=== PATIENT | female | born 1950 | race Caucasian/White ===

== ENCOUNTER → 2025-05-28 | Outpatient (CLI) | payer MEDICARE, OTHER ==
[~2025-05-28] MED LIST: ACET-683 PO; CALC500C16 PO; D-MA500C2 PO; GNP250TA9 PO; IBUP-1022 PO; MELO7.5T35 PO; OXYC-517 PO; PROBCAP14 PO
== END ==
LOC: M SOG 06:50
PROVIDERS: ATTEND Physician Assistant
DX: M25.621 Stiffness of right elbow, not elsewhere classified (principal); Z87.81 Personal history of (healed) traumatic fracture; Z96.698 Presence of other orthopedic joint implants; Z96.641 Presence of right artificial hip joint

== ENCOUNTER 2025-06-05 09:32 | Day surgery (SDC) | payer MEDICARE, OTHER ==
[~2025-06-05] VITALS: Ht 167.6 cm; Wt 58.1 kg
[~2025-06-05 09:32] MED LIST changes: -IBUP-1022 PO; +IBUP600T42 PO
[2025-06-05] MEDS ORDERED: MIDAZOLAM INJ 2 MG/2 ML VIAL As Ordered ONE (09:43)
[2025-06-05] MEDS ORDERED: LIDOCAINE 2% 100 MG/5 ML SDV (FOR ANES.) As Ordered ONE (09:44)
[2025-06-05] MEDS ORDERED: dexAMETHasone 4 MG/ML 1 ML VIAL As Ordered ONE (09:45)
[2025-06-05] MEDS ORDERED: LR 1,000 ML IV SCH (09:55)
[2025-06-05] MEDS ORDERED: ACETAMINOPHEN 1000MG/100ML IV BAG As Ordered ONE (11:16)
[2025-06-05] MEDS ORDERED: ceFAZolin SOD 2 GM IV ONCE IV ONE (12:00)
[2025-06-05] MEDS ORDERED: ONDANSETRON 4MG 2ML VIAL As Ordered ONE (12:01)
[2025-06-05] MEDS ORDERED: GLYCOPYRROLATE INJ 0.2 MG/ML 2 ML VIAL As Ordered ONE (12:13)
[2025-06-05] MEDS ORDERED: KETOROLAC 30 MG/ML 1 ML VIAL As Ordered ONE (12:40)
[2025-06-05] MEDS: ONDANSETRON 4MG 2ML VIAL IV PRN (13:49)
[2025-06-05 14:13] VITALS: BP 140/60; TEMP 97.2; O2SAT 98
== END 2025-06-05 14:24 | disposition home or self-care (01) ==
LOC: M SDC 09:32
PROVIDERS: ATTEND Orthopaedic Surgery Hand Surgery
DX: T84.84XA Pain due to internal orthopedic prosthetic devices, implants and grafts, initial encounter (principal); Y79.2 Prosthetic and other implants, materials and accessory orthopedic devices associated with adverse incidents; Z96.641 Presence of right artificial hip joint
CPT/HCPCS: 20680; 76000; J0131; J0665; J0690; J1100; J1596; J1885; J2250; J2405; J3010

== ENCOUNTER → 2025-06-14 | Outpatient (CLI) | payer MEDICARE, OTHER | LOC: M SOG 07:17 | PROVIDERS: ATTEND Physician Assistant | DX: M25.621 Stiffness of right elbow, not elsewhere classified (principal) ==